=== PATIENT | male | born 1995 ===

== ENCOUNTER 2017-05-26 05:49 | Day surgery (SDC) | payer MEDICAID ==
[2017-05-26] MEDS ORDERED: ceFAZolin IV 1 gm in Dextrose 1 GM/50 ML BAG IVPB ONE (07:31)
[2017-05-26] MEDS ORDERED: Midazolam 2 MG/2 ML VIAL ONE (07:39)
[2017-05-26] MEDS ORDERED: Propofol 10 mg/ml Inj (20 ML) ONE (07:39)
[2017-05-26] MEDS ORDERED: Phenylephrine 10 mg/ml Inj ONE (07:42)
[2017-05-26] MEDS ORDERED: Succinylcholine Chloride 20 mg/ml Syr (5 ml) IV ONE (07:42)
[2017-05-26] MEDS ORDERED: Rocuronium 10 mg/ml (5 ml) ONE (07:42)
[2017-05-26] MEDS ORDERED: Lactated Ringer's 1,000 ML IV ONE (07:48)
[2017-05-26] MEDS ORDERED: Morphine 10 mg/5 ml Oral Soln PO PRN (08:28)
[2017-05-26] MEDS ORDERED: Dextrose 5%/0.45% NS 1,000 ML IV SCH (08:30)
[2017-05-26] MEDS: HYDROmorphone 0.5 mg/0.5 ml ISec IVP PRN ×2 (09:12→12:14)
[2017-05-26 10:05] VITALS: RESP 18
[2017-05-26 11:12] VITALS: BP 121/55; PULSE 84; TEMP 98; O2SAT 99
--- NOTE | 2017-05-26 15:09 | OP ---
PROCEDURE DATE: 05/26/2017 PREOPERATIVE DIAGNOSIS: Chronic tonsillitis. POSTOPERATIVE DIAGNOSIS: Chronic tonsillitis. PROCEDURE: Tonsillectomy. SIGNIFICANT FINDINGS: Chronically infected tonsils. DESCRIPTION OF PROCEDURE: The patient was brought into the room and placed in supine position. Anesthesia was initiated through an ET tube. The patient was draped in usual manner. Mouth gag was placed in the oral cavity, opened and suspended on the [employer] the usual manner. Right tonsil was grabbed and pulled medially. Incision was made in the anterior tonsillar pillar using a plasma knife. Dissections were done between tonsil and tonsillar fossa using a plasma knife until the tonsil was removed. Bleeding was controlled using a plasma knife. Next, the other tonsil was grabbed and pulled medially. Incision was made in the anterior tonsillar pillar using a plasma knife. Dissections were done between tonsil and tonsillar fossa using a plasma knife until the tonsil was removed. Bleeding was controlled using a plasma knife. Both tonsillar beds were rubbed vigorously with a plasma knife wand. No bleeding was noted. Mouth gag was let down for 30 seconds and put back up. No bleeding was noted. Mouth gag was taken out and removed. The patient was taken off anesthesia and taken to recovery room in stable manner. Rah Moran MD
== END 2017-05-26 11:08 | disposition home or self-care (01) ==
LOC: C.SDS 05:49
PROVIDERS: ATTEND Otolaryngology
DX: J35.01 Chronic tonsillitis (principal)
CPT/HCPCS: 42826; 88304; J0690; J1100; J1170; J2001; J2250; J2370; J2405; J2704; J3010; J7040; J7120